=== PATIENT | female | born 1955 | race Caucasian/White ===

== ENCOUNTER 2018-08-23 09:00 | Day surgery (SDC) | payer MEDICARE, OTHER ==
[~2018-08-23] VITALS: Ht 154.9 cm; Wt 37.3 kg
[~2018-08-23 09:00] MED LIST: ALEN70TA5 PO; CHOL400T10 PO; EPOE3000 SC; ICOS1CAP PO; LEVO112T57 PO; LEVO250T22 PO; LOSA50TA2 PO; METO-429 PO; MINO2.5T16 PO; NEPH PO; NIFE90TA PO; NITR0.4T32 SL; OMEP20CA16 PO; SVL800C PO
[2018-08-23 10:28] VITALS: BP 129/62; PULSE 65; RESP 20
[2018-08-23 10:59] VITALS: Ht 154.9 cm; Wt 37.3 kg
[2018-08-23] MEDS ORDERED: HYDRALAZINE (11:23)
[2018-08-23] MEDS ORDERED: CLONIDINE (11:23)
[2018-08-23] MEDS ORDERED: PREDNISONE (11:23)
[2018-08-23] MEDS ORDERED: MYCOPHENOLATE (11:23)
[2018-08-23] MEDS ORDERED: DIPHENOXYLATE (11:23)
[2018-08-23] MEDS ORDERED: LISINOPRIL (11:23)
[2018-08-23] MEDS ORDERED: CARVEDILOL (11:23)
[2018-08-23] MEDS ORDERED: TYLENOL PRN (11:23)
[2018-08-23 11:30] VITALS: BP 108/68; PULSE 82; RESP 16
[2018-08-23] MEDS ORDERED: CARV25TA79 PO (13:58)
[2018-08-23] MEDS ORDERED: SEVE800T7 PO (13:58)
[2018-08-23] MEDS ORDERED: CLON0.3T PO (13:59)
[2018-08-23] MEDS ORDERED: LISI40TA3 PO (13:59)
[2018-08-23] MEDS ORDERED: LEVO200T6 PO (14:00)
[2018-08-23] MEDS ORDERED: MYCO500T3 PO (14:01)
[2018-08-23] MEDS ORDERED: ALEN70TA5 PO (14:01)
[2018-08-23] MEDS ORDERED: NEPH PO (14:02)
[2018-08-23] MEDS ORDERED: HYDR100T25 PO (14:02)
[2018-08-23] MEDS ORDERED: ACET-141 PO (14:04)
[2018-08-23] MEDS ORDERED: DIPH1TAB25 PO (14:04)
[2018-08-23] MEDS ORDERED: PRED5TAB PO (14:05)
== END 2018-08-23 12:10 | disposition short-term general hospital (02) ==
LOC: GIL 09:00
PROVIDERS: ATTEND Internal Medicine Gastroenterology
DX: R19.4 Change in bowel habit (principal); Z53.09 Procedure and treatment not carried out because of other contraindication; R53.1 Weakness
CPT/HCPCS: 82962; 84132; 93005

== ENCOUNTER 2018-08-23 12:17 | Inpatient (IN) | payer MEDICARE, OTHER ==
[2018-08-23] VITALS (16 sets, daily range): BP systolic 119–213; BP diastolic 63–79; PULSE 60–77; RESP 17–18; Ht 157.5 cm; Wt 37.2 kg
[~2018-08-23] VITALS: Ht 157.5 cm; Wt 37.2 kg
[~2018-08-23 12:17] MED LIST changes: +CARVEDILOL; +CLONIDINE; +DIPHENOXYLATE; +HYDRALAZINE; +LISINOPRIL; +MYCOPHENOLATE; +PREDNISONE; +TYLENOL PRN
--- NOTE | 2018-08-23 12:30 | ERD ---
ER Documentation Chief Complaint Chief Complaint Hyperkalemia HPI This is a 62-year-old female with a past medical history of hypertension, end- stage renal disease on dialysis, completed a full round of dialysis yesterday, hyperthyroidism, rheumatoid arthritis, lupus, chronic diarrhea for which she was scheduled to have an endoscopy today he is now presenting with generalized weakness and concerns of hyperkalemia. Prior to the endoscopy, the patient had blood work drawn that revealed hyperkalemia greater than 7. It was repeated that confirmed the results. The patient does endorse general weakness, but has no other complaints. She does not endorse any alleviating or exacerbating factors. The patient denies feeling sick recently. The patient denies fever or chills. The patient has had no headache or vision changes. The patient does not endorse neck or back pain. The patient denies lightheadedness or dizziness. The patient has had no chest pain or trouble breathing. The patient denies nausea or vomiting. The patient denies abdominal pain. The patient denies changes to bowel movements or urination. The patient has had no focal deficits. The patient has had no weakness or numbness or tingling to the face or extremities. ROS All systems reviewed and are negative except as per history of present illness. Medications Home Meds Reported Medications Prednisone* (Prednisone*) 5 Mg Tab, 5 MG PO Q OTHER DAY, TAB 08/23/18 Acetaminophen* (Acetaminophen*) 500 MG Extra Strength Tablet, 500 MG PO NEEDED PRN for PAIN AND OR ELEVATED TEMP, TAB 08/23/18 Diphenoxylate HCl/Atropine (Diphenoxylate-Atrop 2.5-0.025) 1 Each Tablet, 1 EACH PO Q6H, TAB 08/23/18 Multivit/Ca Carb/B Cmplx/Fa* (Renuka-Lyn*) 1 Tab Tab, 1 TAB PO DAILY, TAB 08/23/18 Hydralazine Hcl* (Hydralazine Hcl*) 100 Mg Tablet, 100 MG PO Q8, #90 TAB 08/23/18 Alendronate Sodium* (Fosamax*) 70 Mg Tablet, 70 MG PO Q7D, #4 TAB 08/23/18 Mycophenolate Mofetil* (Mycophenolate Mofetil*) 500 Mg Tablet, 500 MG PO BID, TAB 08/23/18 Levothyroxine Sodium* (Levothyroxine Sodium*) 200 Mcg Tablet, 200 MCG PO BEFORE BREAKFAST, #30 TAB 08/23/18 Lisinopril* (Lisinopril*) 40 Mg Tablet, 40 MG PO DAILY, #30 TAB 08/23/18 Clonidine Hcl* (Clonidine Hcl*) 0.3 Mg Tablet, 0.3 MG PO Q8, TAB 08/23/18 Carvedilol* (Carvedilol*) 25 Mg Tablet, 25 MG PO BID, #60 TAB 08/23/18 Sevelamer Carbonate* (Renvela*) 800 Mg Tablet, 1.6 GM PO WITH MEALS, TAB 08/23/18 Discontinued Reported Medications [Tylenol Prn] No Conflict Check 08/23/18 [Lisinopril] No Conflict Check 08/23/18 [Mycophenolate] No Conflict Check 08/23/18 [Hydralazine] No Conflict Check 08/23/18 [Prednisone] No Conflict Check 08/23/18 [Clonidine] No Conflict Check 08/23/18 [Carvedilol] No Conflict Check 08/23/18 [Diphenoxylate] No Conflict Check 08/23/18 Levothyroxine Sodium* (Levothyroxine Sodium*) 112 Mcg Tablet, 112 MCG PO AC BREAKFAST, TAB 12/23/14 Losartan Potassium* (Cozaar*) 50 Mg Tablet, 50 MG PO BID, TAB 12/23/14 Sevelamer Hcl* (Renagel*) 800 Mg Tablet, 1600 MG PO AC MEALS, TAB 06/06/14 Cholecalciferol* (Vitamin D*) 400 Unit Tablet, 400 UNIT PO DAILY, TAB 06/06/14 Multivit/Ca Carb/B Cmplx/Fa* (Renuka-Lyn*) 1 Tab Tab, 1 TAB PO DAILY, TAB 06/06/14 Alendronate Sodium* (Fosamax*) 70 Mg Tablet, 70 MG PO Q7D, TAB 06/06/14 Omeprazole* (Omeprazole*) 20 Mg Capsule.dr, 20 MG PO QAM, CAP 06/06/14 Icosapent Ethyl (VASCEPA) 1 Gm Capsule, 2 GM PO BID 06/06/14 Nitroglycerin* (Nitroglycerin* SL) 0.4 Mg Tab.subl, 0.4 MG SL Q5MIN PRN for CHEST PAIN, BOTTLE 06/06/14 Metoprolol Tartrate* (Lopressor*) 50 Mg Tab, 100 MG PO BID, TAB 06/06/14 Epoetin chriss* (Epogen*) 3,000 Unit/1 Ml Vial, 3000 UNIT SC ON TREATMENT DAYS, VIAL 06/06/14 Discontinued Scripts Losartan Potassium* (Cozaar*) 50 Mg Tablet, 50 MG PO BID, #30 TAB Prov:ERNESTO TOURE MD 06/08/14 Nifedipine* (Procardia XL*) 90 Mg Tabsr, 90 MG PO DAILY, #30 BOT Prov:ERNESTO TOURE MD 06/08/14 Minoxidil* (Lonitin*) 2.5 Mg Tab, 5 MG PO DAILY for 28 Days, TAB Prov:ERNESTO TOURE MD 06/08/14 Levofloxacin* (Levaquin*) 250 Mg Tab, 250 MG PO Q48H, #5 BOTTLE Prov:ERNESTO TOURE MD 06/08/14 Allergies Allergies: Coded Allergies: Penicillins (Verified Allergy, Mild, 08/23/18) PMhx/Soc History of Surgery: Yes (HYSTERECTOMY, C SECTION) Anesthesia Reaction: No Hx Neurological Disorder: No Hx Respiratory Disorders: Yes (BRONCHITIS) Hx Cardiac Disorders: Yes (HTN, ) Hx Psychiatric Problems: No Hx Miscellaneous Medical Probl: Yes (RENAL FAILURE W/ HD (MWF), hyperthyroidism, rheumatoid arthritis, lupus) Hx Alcohol Use: No Hx Substance Use: No Hx Tobacco Use: No FmHx Family History: No diabetes Physical Exam Vitals Vital Signs Date Temp Pulse Resp B/P (MAP) Pulse Ox O2 O2 Flow FiO2 Time Delivery Rate 08/23/18 98.6 74 18 156/64 94 Room Air 15:39 (94) 08/23/18 68 18 186/175 96 Room Air 14:00 (179) 08/23/18 64 15 236/66 96 Room Air 13:30 (122) 08/23/18 67 20 191/69 99 Room Air 13:24 (109) 08/23/18 65 15 97 21 13:14 08/23/18 98.8 77 20 184/80 99 12:19 (114) Physical Exam Const: No acute distress Head: Atraumatic Eyes: Normal Conjunctiva ENT: Normal External Ears, Nose and Mouth. Neck: Full range of motion. No meningismus. Resp: Clear to auscultation bilaterally Cardio: Regular rate and rhythm, no murmurs Abd: Soft, non tender, non distended. Normal bowel sounds Skin: No petechiae or rashes Back: No midline or flank tenderness Ext: No cyanosis, or edema. Right forearm AV fistula with palpable pulsatile thrill. Neur: Awake and alert Psych: Normal Mood and Affect Result Diagram: 08/23/18 1306 08/23/18 1306 Results 24 hrs Laboratory Tests Test 08/23/18 13:06 08/23/18 14:12 08/23/18 14:35 White Blood Count 5.6 10^3/ul Red Blood Count 4.10 10^6/ul Hemoglobin 12.9 g/dl Hematocrit 38.7 % Mean Corpuscular Volume 94.4 fl Mean Corpuscular Hemoglobin 31.5 pg Mean Corpuscular Hemoglobin Concent 33.3 g/dl Red Cell Distribution Width 16.5 % Platelet Count 130 10^3/UL Mean Platelet Volume 10.4 fl Immature Granulocytes % 0.400 % Neutrophils % 70.1 % Lymphocytes % 19.5 % Monocytes % 8.2 % Eosinophils % 1.1 % Basophils % 0.7 % Nucleated Red Blood Cells % 0.0 /100WBC Immature Granulocytes # 0.020 10^3/ul Neutrophils # 4.0 10^3/ul Lymphocytes # 1.1 10^3/ul Monocytes # 0.5 10^3/ul Eosinophils # 0.1 10^3/ul Basophils # 0.0 10^3/ul Nucleated Red Blood Cells # 0.0 10^3/ul Sodium Level 137 mmol/L Potassium Level 7.2 mmol/L Chloride Level 92 mmol/L Carbon Dioxide Level 28 mmol/L Anion Gap 17 Blood Urea Nitrogen 48 mg/dl Creatinine 6.81 mg/dl Est Glomerular Filtrat Rate mL/min 6 mL/min Glucose Level 52 mg/dl Calcium Level 8.5 mg/dl Bedside Glucose 51 mg/dL 415 mg/dL Current Medications Medications Dose Sig/Zainab Start Time Status Last (Trade) Ordered Route PRN Stop Time Admin Dose Reason Admin Albuterol 15 mg ONCE STAT 08/23/18 DC 08/23/18 (Proventil INH 12:31 08/23/18 13:13 0.5% (Neb)) 12:33 Sodium 50 ml ONCE STAT 08/23/18 DC 08/23/18 Bicarbonate IV 12:31 08/23/18 13:23 (Na Bicarb 12:33 8.4% Syg) Calcium 1,000 mg ONCE STAT 08/23/18 DC 08/23/18 Chloride IV 12:31 08/23/18 13:23 (Ca Chloride 12:33 10% Syg) Ondansetron 4 mg ER BRIDGE 08/23/18 HCl (Zofran PRN IV 14:00 Inj) NAUSEA/VOMITI 08/24/18 13:59 NG 650 mg ER BRIDGE 08/23/18 Acetaminophen PRN PO 14:00 (Tylenol .MILD PAIN 08/24/18 13:59 Tab) 1-3 OR TEMP Insulin 10 unit ONCE STAT 08/23/18 DC 08/23/18 Human IVP 13:37 08/23/18 14:18 Regular 13:39 (Humulin R) Dextrose ONCE PRN 08/23/18 08/23/18 (D50w IV DECREASED 14:00 14:15 Syringe) GLUCOSE Procedures/MDM MDM The patient's presentation warrants further investigation. Previous medical records, if available, were reviewed. LABS The patient's laboratory testing was obtained and reviewed. No emergent treatment was required unless described below. CBC: No E/o systemic infection or severe anemia or thrombocytopenia Chemistry: Hyperkalemia. Elevated BUN and creatinine in line with end-stage renal disease. No E/o severe acidosis or alkalosis or diabetic ketoacidosis EKG EKG read by me: Rate/Rhythm: Regular rate and rhythm at a rate of 69 bpm Intervals: Normal Martin: Left shifted Impression: Peaked T waves concerning for hyperkalemia. Nonspecific repolarization changes without evidence of acute ischemia. No arrhythmia TREATMENT/DISPOSITION The patient presents for an elevated potassium level. The patient's EKG was concerning for hyperkalemia as well. The patient was treated with medications to help transiently bring her potassium down in accordance with her potassium protocol. Her potassium is rechecked today found to be elevated despite receiving dialysis yesterday. I do feel that the patient requires repeat dialysis to bring her potassium levels down. Otherwise, the patient's exam is reassuring. The patient did endorse fatigue, which I suspect is related to her hyperkalemia. The patient is not clinically orthostatic. The patient is not dizzy. I have decreased suspicion for vertigo. The patient has no signs of emergent or symptomatic anemia. I have decrease suspicion for a thyroid disorder. The patient is not toxic appearing. I have decreased suspicion for an infectious etiology of symptoms. The patient's EKG is reassuring. I have low suspicion for acute coronary syn drome. I do not see evidence of any emergent cardiac arrhythmia, which includes but is not limited to heart block, Brugada syndrome or WPW. The patient has no heart murmurs or rales. I have low suspicion for hypertrophic cardiomyopathy. I do not see evidence of CHF. The patient does not endorse any chest or pleuritic pain. The history is negative for bleeding or clotting disorders. The patient has not been involved in any recent prolonged trips or surgeries or hospitalizations. The patient has no calf tenderness or swelling. I have decreased suspicion for PE as the etiology of symptoms. The patient has no focal deficits. The neurologic exam is reassuring. I have decreased suspicion for cerebral ischemia. There was no trauma or injury. There is no personal or family history of cerebral aneurysm. I have decreased suspicion for SAH or other ICH. I have low suspicion for temporal arteritis, cavernous venous thrombosis, subdural hematoma, epidural hematoma, meningitis. ADMISSION At this time, I feel that the patient requires admission for further evaluation and management. The patient will be admitted to Dr. Goodwin in accordance with the patient's insurance. The patient was accepted at [address] Goodwin will also act as nephrology. Dr. Toure is the patient's primary care doctor and athletic events scorer per her report. Disclaimer: Inadvertent spelling and grammatical errors are likely due to EHR/dictation software use and do not reflect on the overall quality of patient care. Note that the electronic time recorded on this note does not necessarily reflect the actual time of the patient encounter. Departure Diagnosis: Primary Impression: Hyperkalemia Additional Impressions: General weakness Fatigue Fatigue type: unspecified Qualified Codes: R53.83 - Other fatigue End-stage renal disease needing dialysis Condition: Serious SAFIA WILDE MD Aug 23, 2018 12:30
[2018-08-23] MEDS ORDERED: NA BICARBONATE 8.4% 50 ML SYG IV STA (12:31)
[2018-08-23] MEDS ORDERED: CA CHLORIDE 10% 10 ML SYRINGE IV STA (12:31)
[2018-08-23] MEDS ORDERED: ALBUTEROL 0.5% (NEB) 2.5 MG/0.5 ML AMP INH STA (12:31)
[2018-08-23] MEDS ORDERED: INSULIN REGULAR, HUMAN 100 UNIT/1 ML 3ML VIAL IVP STA (13:37)
[2018-08-23] MEDS ORDERED: SEVE800T7 PO (13:58)
[2018-08-23] MEDS ORDERED: CARV25TA79 PO (13:58)
[2018-08-23] MEDS ORDERED: LISI40TA3 PO (13:59)
[2018-08-23] MEDS ORDERED: CLON0.3T PO (13:59)
[2018-08-23] MEDS ORDERED: LEVO200T6 PO (14:00)
[2018-08-23] MEDS ORDERED: ACETAMINOPHEN 325 MG TAB PO PRN ×2 (14:00→18:30)
[2018-08-23] MEDS ORDERED: DEXTROSE 50% 50 ML SYRINGE IV PRN (14:00)
[2018-08-23] MEDS ORDERED: ONDANSETRON 4 MG INJ IV PRN ×2 (14:00→18:30)
[2018-08-23] MEDS ORDERED: ALEN70TA5 PO (14:01)
[2018-08-23] MEDS ORDERED: MYCO500T3 PO (14:01)
[2018-08-23] MEDS ORDERED: HYDR100T25 PO (14:02)
[2018-08-23] MEDS ORDERED: NEPH PO (14:02)
[2018-08-23] MEDS ORDERED: DIPH1TAB25 PO (14:04)
[2018-08-23] MEDS ORDERED: ACET-141 PO (14:04)
[2018-08-23] MEDS ORDERED: PRED5TAB PO (14:05)
--- NOTE | 2018-08-23 18:06 | QN ---
Documentation Comment seen and examined H and p DESTINEY Gutierrez MD Aug 23, 2018 18:06
[2018-08-23] MEDS ORDERED: DOCUSATE SODIUM 100 MG CAP PO PRN (18:30)
[2018-08-23] MEDS ORDERED: HYDROCODONE/APAP (5/325) TAB PO PRN (18:30)
[2018-08-23] MEDS ORDERED: DIPHENOXYLATE/ATROPINE TAB PO PRN (18:30)
[2018-08-23] MEDS ORDERED: NACL 0.9% 3 ML SYG IV SCH (18:30)
[2018-08-23] MEDS: hydrALAzine 20 MG INJ IV PRN (18:35)
[2018-08-23] MEDS: MYCOPHENOLATE MOFETIL 500 MG TABLET PO SCH (21:00)
[2018-08-23] MEDS: HEPARIN 5,000 UNIT/1 ML VIAL SC SCH (22:38)
[2018-08-24] VITALS (21 sets, daily range): BP systolic 103–198; BP diastolic 52–79; PULSE 54–70; RESP 16–20
--- NOTE | 2018-08-24 00:35 | HP ---
DATE OF ADMISSION: 08/23/2018 REASON FOR ADMISSION: Hyperkalemia. HISTORY OF PRESENT ILLNESS: This is a 62-year-old female with a past medical history of hypertension, diabetes, end-stage renal disease on hemodialysis MWF for last 6-1/2 years, hypothyroidism, rheumatoid arthritis, lupus, chronic diarrhea, was scheduled to have a colonoscopy today with Dr. Haley. The patient got her regualr HD yesterday , the patient said that she ate some tomatoes and potato yesterday. She presented for her regular endoscopy. The labs were checked that showed patient had a potassium of 7.2, BUN of 48, creatinine 6.81, sodium 137 and patient was admitted for a stat hemodialysis. EKG showed the patient had hyperacute T waves. The patient was given albuterol, sodium bicarbonate, calcium chloride. PAST MEDICAL HISTORY: 1. End-stage renal disease on hemodialysis for last 6-1/2 years. 2. Hypertension. 3. Rheumatoid arthritis. 4. Lupus. 5. History of anemia. ALLERGIES: PENICILLIN. SOCIAL HISTORY: Denies any history of smoking, alcohol or any drug use. FAMILY HISTORY: Negative. MEDICATIONS TAKING AT HOME: 1. Coreg 25 p.o. b.i.d. 2. Clonidine 0.3 q.8h. 3. Hydralazine 100 mg. 4. Lisinopril 40. 5. Renagel 1.6 with meals. 6. Diphenoxylate. 7. Levothyroxine 200. 8. Prednisone 5. 9. Renuka-isabel. 10. Fosamax. 11. Mycophenolate. PAST SURGICAL HISTORY: History of abdominal surgery, . REVIEW OF SYSTEMS: The patient complained of some generalized weakness. Denies any chest pain, any shortness of breath, any abdominal pain, nausea, vomiting, Denied any fevers, chills. Denied any focal neurological deficits.+Chronic diarrhea PHYSICAL EXAMINATION: VITAL SIGNS: Currently temperature 98.6, pulse 74, respirations 18, blood pressure initially was 184/80, then came down to 186/175. GENERAL: The patient is awake, alert, oriented, does not appear to in any acute distress. Patient is thin female. HEENT: Pupils equal, round, react to light. NECK: Supple. No JVD. NECK: Supple. HEART: Regular rate and rhythm. LUNGS: Clear to auscultation bilaterally. ABDOMEN: Scaphoid, positive bowel sounds. Well-healed surgical scar. EXTREMITIES: No clubbing, cyanosis, or edema. The patient has a right upper extremity fistula with good bruit and thrill. LABORATORY DATA: White count 5.6, hemoglobin 12.9, platelet count 130, potassium 7.2, BUN of 48, creatinine 6.1, glucose of 52. EKG shows peaked T waves concerning for hyperkalemia. ASSESSMENT AND PLAN: This is a 62-year-old female who presented with: 1. Hyperkalemia. EKG changes with hyperacute T waves. Patient is status post insulin 10 units, calcium chloride, sodium bicarbonate, albuterol. The patient received hemodialysis yesterday; however, the patient had been noncompliant with her diet before. The patient is also on lisinopril. 2. Fatigue, likely secondary to #1. 3. Hypertension.uncontrolled 4. Hyperlipidemia. 5. Rheumatoid arthritis. 6. Lupus.on imuunosupressants 7 ESRD on MWF 8 Hypothyroidism PLAN: At this period of time, the patient will be admitted to [facility]. The patient will receive stat hemodialysis. The patient should have low K diet. We will repeat the EKG. We will check labs 3 hours after hemodialysis. Will resume the patient on home blood pressure medicines. Rest of the treatment will depend on the patient's hospitalization course. Dictated By: DESTINEY WILCOX/SUSAN Conf#: [id number] DID#: [id number]
[2018-08-24] MEDS: HEPARIN 5,000 UNIT/1 ML VIAL SC SCH ×2 (05:53→17:03)
[2018-08-24] MEDS ORDERED: PANTOPRAZOLE (EC) 40 MG TAB PO SCH (06:00)
[2018-08-24] MEDS ORDERED: LEVOTHYROXINE 100 MCG TAB PO SCH (07:00)
[2018-08-24] MEDS: SEVELAMER CARBONATE 0.8 GM PKT PO SCH ×3 (08:09→17:05)
[2018-08-24] MEDS: hydrALAzine 20 MG INJ IV PRN ×2 (08:10→17:01)
[2018-08-24] MEDS ORDERED: predniSONE 5 MG TAB PO SCH (09:00)
[2018-08-24] MEDS ORDERED: MULTIVIT/CA CARB/B CMPLX/FA TAB PO SCH (09:00)
[2018-08-24] MEDS ORDERED: GLUCOSE GEL 15 GRAM TUBE PO PRN ×2 (11:00)
[2018-08-24] MEDS ORDERED: GLUCAGON 1 MG INJ IM PRN (11:00)
[2018-08-24] MEDS ORDERED: DEXTROSE 50% 50 ML SYRINGE IV PRN ×2 (11:00)
[2018-08-24] MEDS ORDERED: GLUCOSE GEL 15 GRAM TUBE BUCCAL PRN (11:00)
[2018-08-24] MEDS: MYCOPHENOLATE MOFETIL 500 MG TABLET PO SCH (12:45)
--- NOTE | 2018-08-24 12:46 | QN ---
Documentation Comment pt feels better today k improved dc today after HD DESTINEY PATEL MD Aug 24, 2018 12:46
[2018-08-24] MEDS: INSULIN ASPART [NOVOLOG] 3 ML PEN SC SCH ×2 (12:47→17:14)
--- NOTE | 2018-08-24 12:47 | PDOCDIS ---
Discharge Instructions DIAGNOSIS Discharge Diagnosis HYPERKALEMIA LOW K DIET CONDITION [id number] Patient Condition: [id number] Fair HOME CARE INSTRUCTIONS: [id number] Special Diet: [id number] RENAL ACTIVITY: [id number] Activity Restrictions: [id number] Slowly Increase Activity Rest between Activity Avoid heavy lifting FOLLOW UP/APPOINTMENTS Follow-up Plan FU MWF FU DR TANG FOR COLONOSCOPY LOW K DIET DESTINEY PATEL MD Aug 24, 2018 12:47
[2018-08-25] MEDS ORDERED: ACCU-CHEK XX SCH (02:00)
--- NOTE | 2018-08-25 06:22 | DS ---
DATE OF ADMISSION: 08/23/2018 DATE OF DISCHARGE: 08/24/2018 HISTORY OF PRESENT ILLNESS AND HOSPITAL COURSE: This is a 62-year-old female with past medical histo ry of hypertension, diabetes, end-stage renal disease on hemodialysis, lupus, rheumatoid arthritis, h ypothyroidism and chronic diarrhea who was scheduled to have a colonoscopy today with Dr. Rachel. T he patient got her dialysis yesterday; however, the patient said she ate some tomatoes and potatoes, presented for her regular colonoscopy. The patient was feeling a little fatigued, had labs showing a potassium of 7.2, BUN of 48, creatinine 6.81 and the patient's EKG showed hyperacute T waves. The p atient got medical management for that and then was admitted to the hospital secondary for stat dialy sis. The patient received dialysis the day after. Potassium came down to 4.6. Condition got stabil ized. We spoke to Dr. Rachel to do probably an inpatient colonoscopy; however, he said to follow up with him as an outpatient for an outpatient colonoscopy DISCHARGE DIAGNOSES: 1. Hyperkalemia, likely secondary to noncompliance. 2. Fatigue secondary to #1 with history of chronic diarrhea, pending colonoscopy as an outpatient. 3. Hypertension. 4. Hyperlipidemia. 5. Rheumatoid arthritis. 6. Lupus. 7. End-stage renal disease on hemodialysis. DISCHARGE CONDITION: Stable. DISCHARGE DIET: Renal diet. DISCHARGE MEDICATIONS: Continue with home medications: 1. Coreg 25 b.i.d. 2. Clonidine 0.3 q.8. 3. Hydralazine 100 q.8. 4. Levothyroxine 200. 5. Lisinopril 40. 6. Multivitamin. 7. Mycophenolate 500 b.i.d. 8. Prednisone 5. 9. Renagel 1.6 grams with meals. DISCHARGE INSTRUCTIONS: The patient was instructed to follow up with hemodialysis Wednesday, Wednesday, Wednesday and follow up with Dr. Rachel for outpatient colonoscopy. Dictated By: DESTINEY WILCOX/SUSAN Conf#: [id number] DID#: [id number] CC: ERNESTO TOURE MD;*EndCC*
[2018-08-30] MEDS ORDERED: ALENDRONATE 70 MG TAB PO SCH (06:00)
== END 2018-08-24 20:28 | disposition home or self-care (01) | DRG 640 ==
LOC: E/R 12:17 → 6WM 13:37
PROVIDERS: ADMIT Internal Medicine Nephrology; ATTEND Internal Medicine Nephrology
PROC: 5A1D70Z Performance of Urinary Filtration, Intermittent, Less than 6 Hours Per Day (ICD-10-PCS; principal; 2018-08-23)
DX: E87.5 Hyperkalemia (principal); N18.6 End stage renal disease; I12.0 Hypertensive chronic kidney disease with stage 5 chronic kidney disease or end stage renal disease; Z99.2 Dependence on renal dialysis; R53.83 Other fatigue; E78.5 Hyperlipidemia, unspecified; M06.9 Rheumatoid arthritis, unspecified; E03.9 Hypothyroidism, unspecified; M32.9 Systemic lupus erythematosus, unspecified; Z91.11 Patient's noncompliance with dietary regimen
CPT/HCPCS: 80048; 82962; 84132; 85025; 87340; 90935; 93005; 94664; 96374; 96375; J0360; J1644; J1815; J7512